=== PATIENT | female | born 1950 | race Caucasian/White ===

== ENCOUNTER 2020-04-19 10:34 | Outpatient (REF) | payer MEDICARE, SELFPAY | END 2020-04-19 10:35 | disposition home or self-care (01) | LOC: HO.LAB 10:34 | PROVIDERS: Visit Provider Internal Medicine | DX: Z20.828 Contact with and (suspected) exposure to other viral communicable diseases (principal) | CPT/HCPCS: C9803; U0003 ==

== ENCOUNTER 2020-05-02 11:27 | Outpatient (REF) | payer MEDICARE, MEDICAID, SELFPAY | END 2020-05-02 11:28 | disposition home or self-care (01) | LOC: HO.LAB 11:27 | PROVIDERS: PCP Family Medicine; Visit Provider Internal Medicine | DX: Z20.828 Contact with and (suspected) exposure to other viral communicable diseases (principal) | CPT/HCPCS: C9803; U0003 ==

== ENCOUNTER 2021-08-24 06:07 | Day surgery (SDC) | payer MEDICARE, SELFPAY ==
--- NOTE | 2021-08-21 14:04 | HO.ANESPROP2 ---
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 RAMON (obstructive sleep apnea) Osteoarthritis Scoliosis Urinary, incontinence, stress female Surgical History Surgical History (Updated 08/21/21 @ 13:23 by Mary Painter RN) History of surgical procedure Hx of colonoscopy Social History Social History Patient Tobacco Use Status: Never used Tobacco Use of substances other than those prescribed or required for medical reasons: No Are you DNR?: No Advance Directives: No Advance Directives Information Provided: Yes Meds Allergies Allergy/AdvReac Type Severity Reaction Status Date / Time ibuprofen Allergy Unknown Verified 08/21/21 13:18 mold Allergy Watery Verified 08/21/21 13:17 Eye, Rhinitis Home Medications Medication Instructions Recorded Confirmed Last Taken Type acetaminophen 500 mg tablet 1 tab PO Q6H PRN 08/19/21 08/19/21 Unknown History aspirin 81 mg tablet,delayed 81 mg PO DAILY 08/19/21 08/19/21 Unknown History release calcium carbonate 600 mg-vitamin 1 tab PO DAILY 08/19/21 08/19/21 Unknown History D3 10 mcg (400 unit) tablet (Calcium 600 + D(3)) cetirizine 10 mg tablet 10 mg PO DAILY 08/19/21 08/19/21 Unknown History diltiazem HCl 180 mg 1 cap PO DAILY 08/19/21 08/19/21 Unknown History capsule,extended release 24 hr levothyroxine 100 mcg tablet 1 tab PO DAILY 08/19/21 08/24/21 08/24/21 History omeprazole 20 mg capsule,delayed 1 cap PO QAM 08/19/21 08/19/21 Unknown History release tramadol 50 mg tablet 2 tab PO Q12H PRN 08/19/21 08/19/21 Unknown History alendronate 70 mg tablet (Fosamax) 70 mg PO QWEEK 08/21/21 08/21/21 Unknown History Exam Exam Date and Time: August 21, 2021 1404 Assessment and Plan Assessment Anesthesia Assessment: Chart Reviewed Documented by User: Jose Luis Holly MD 08/24/21 07:16 [facility] Past Medical History Medical History Chronic low back pain CKD (chronic kidney disease), stage III GERD (gastroesophageal reflux disease) Graves disease HTN (hypertension) 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 RAMON (obstructive sleep apnea) Osteoarthritis Scoliosis Urinary, incontinence, stress female Family History Family history of problems with anesthesia: No Surgical History Surgical History (Updated 08/21/21 @ 13:23 by Mary Painter, AJ) History of surgical procedure Hx of colonoscopy History of Problems with Anesthesia: No Social History Social History Patient Tobacco Use Status: Never used Tobacco Use of substances other than those prescribed or required for medical reasons: No Are you DNR?: No Advance Directives: No Advance Directives Information Provided: Yes Meds Allergies Allergy/AdvReac Type Severity Reaction Status Date / Time ibuprofen Allergy Unknown Verified 08/21/21 13:18 mold Allergy Watery Verified 08/21/21 13:17 Eye, Rhinitis Home Medications Medication Instructions Recorded Confirmed Last Taken Type acetaminophen 500 mg tablet 1 tab PO Q6H PRN 08/19/21 08/19/21 Unknown History aspirin 81 mg tablet,delayed 81 mg PO DAILY 08/19/21 08/19/21 Unknown History release calcium carbonate 600 mg-vitamin 1 tab PO DAILY 08/19/21 08/19/21 Unknown History D3 10 mcg (400 unit) tablet (Calcium 600 + D(3)) cetirizine 10 mg tablet 10 mg PO DAILY 08/19/21 08/19/21 Unknown History diltiazem HCl 180 mg 1 cap PO DAILY 08/19/21 08/19/21 Unknown History capsule,extended release 24 hr levothyroxine 100 mcg tablet 1 tab PO DAILY 08/19/21 08/24/21 08/24/21 History omeprazole 20 mg capsule,delayed 1 cap PO QAM 08/19/21 08/19/21 Unknown History release tramadol 50 mg tablet 2 tab PO Q12H PRN 08/19/21 08/19/21 Unknown History alendronate 70 mg tablet (Fosamax) 70 mg PO QWEEK 08/21/21 08/21/21 Unknown History Exam Airway Mallampati Class: II TM Dist: >3cm Neck ROM: Full Partial: Lower Loose/Missing/Broken Teeth: Yes Heart: [id number] Lungs: cta b/l Assessment and Plan Assessment Anesthesia Assessment: Anesthesia Plan Discussed Final Anesthetic Review Family History of Problems with Anesthesia: No History of Problems with Anesthesia: No NPO: Yes ASA Class: III Final Preanesthetic Review: No Changes in Pt Med Stat, Meds/Allgs Chart Reviewed, Consent Obtained/Reviewed and Anes Risks/Benef Reviewed Patient Risk: Intermediate Procedure Risk: Low Assessment/Block/Sedation in SS: Assess/Block/Sedation-SS Anesthetic Plan Anesthetic Plan: GA and Agree w/ Assess. and Plan Disposition: Standard PACU
--- NOTE | 2021-08-21 16:43 | MHC.SHP ---
Pre-Procedural Eval Section A Date of Service: 08/21/21 The patient is an INPATIENT: No Changes since office visit: No Cold of Flu in the past 2 weeks, No New Medical Problems, No Changes in Medication and No Patient answered all questions The History & Physical has been completed within 30 days and I have reviewed it.: Yes Section B Chief Complaint: Stenosis Allergies: Allergies Allergy/AdvReac Type Severity Reaction Status Date / Time ibuprofen Allergy Unknown Verified 08/21/21 13:18 mold Allergy Watery Verified 08/21/21 13:17 Eye, Rhinitis Plan Diagnosis/Plan: Unchanged I have reviewed the history and physical and performed a pertinent physical examination on my patient. No changes have occurred unless specified.
[2021-08-24 06:15] VITALS: BP 148/72; PULSE 82; RESP 18; TEMP 36.1; O2SAT 97
[2021-08-24 06:16] VITALS: BMI 26.3
[2021-08-24] MEDS: Lactated Ringers 500 ML 50 ML IV (06:36)
--- NOTE | 2021-08-24 08:18 | HO.PNOPHT ---
Ophthalmology Procedure Procedure Date of Service: 08/24/21 Procedure Notes: PREOPERATIVE DIAGNOSIS: Nasolacrimal duct obstruction Right eye POSTOPERATIVE DIAGNOSIS: Same PROCEDURE: Placement of silicone tube intubation right eye SURGEON: Aftab Morris M.D. ANESTHESIA: General ESTIMATED BLOOD LOSS: None COMPLICATIONS: None After obtaining informed consent, the patient was brought to the operating room suite and placed in the supine position. After being placed under general anesthesia, the eyes were prepped and draped in usual sterile procedure. Attention was directed to the right eye where the inferior punctum was dilated followed by placement sequentially of Huynh probes #1 and 2. The silicone tube intubation set was utilized passed through the punctate into the nasolacrimal duct. The silicone tube was then introduced into the cannula. Attention was then directed to the right upper lid puncta once again dilated and followed by passage of Huynh probe 1 and 2 sequentially. This was followed by placement of the silicone tube cannula and the silicone tube was then passed through into the naris. The silicone tube intubation hook was utilized in the naris to identify the silicone tube and exited through the right naris. The tube was tied and sutured to the side of the nares. The patient tolerated the procedure well and will be seen in follow up.
[2021-08-24 08:25] VITALS: BP 137/64; PULSE 69; RESP 15; TEMP 36.4; O2SAT 100
[2021-08-24 08:30] VITALS: BP 135/72; PULSE 74; RESP 14; O2SAT 98
[2021-08-24 08:34] VITALS: BP 134/77; PULSE 74; RESP 16; O2SAT 98
[2021-08-24 08:40] VITALS: BP 131/73; PULSE 72; RESP 16; O2SAT 98
[2021-08-24 08:55] VITALS: BP 135/63; PULSE 73; RESP 17; O2SAT 99
== END 2021-08-24 09:02 | disposition home or self-care (01) ==
PROVIDERS: PCP Family Medicine; Visit Provider Ophthalmology
PROC: (CPT 68815; principal; 2021-08-24 07:30)
DX: H04.551 Acquired stenosis of right nasolacrimal duct (principal); H52.4 Presbyopia; I12.9 Hypertensive chronic kidney disease with stage 1 through stage 4 chronic kidney disease, or unspecified chronic kidney disease; N18.30 Chronic kidney disease, stage 3 unspecified; E05.00 Thyrotoxicosis with diffuse goiter without thyrotoxic crisis or storm; E89.0 Postprocedural hypothyroidism; G47.33 Obstructive sleep apnea (adult) (pediatric); G89.29 Other chronic pain; M54.50 Low back pain, unspecified; Z96.82 Presence of neurostimulator; Z79.899 Other long term (current) drug therapy; Z79.82 Long term (current) use of aspirin
CPT/HCPCS: 68815; J1100; J2370; J2405; J3010